=== PATIENT | male | born 1965 | race Caucasian/White ===

== ENCOUNTER 2018-05-07 09:31 | Emergency (ER) | payer BC ==
[2018-05-07 10:06] LABS: BASO % 0.5 % (0-6); EOS % 1.9 % (0-6); GRAN % 62.2 % (47-80); HEMATOCRIT 45.3 % (42.0-52.0); HEMOGLOBIN 15.1 gm/dl (14.0-18.0); LYMPH % 26.9 % (16-45); MEAN CELL VOLUME 84.4 fl (81-97); MEAN CORPUSCULAR HEMOGLOBIN 28.1 pg (27-33); MEAN CORPUSCULAR HGB CONC 33.3 g/dl (32-36); MEAN PLATELET VOLUME 10.1 fl (7.4-10.4); MONO % 8.5 % (0-9); PLATELET COUNT 230 K/uL (130-400); RED BLOOD COUNT 5.37 M/uL (4.40-5.70); RED CELL DISTRIBUTION WIDTH 12.9 % (11.5-14.5); WHITE BLOOD COUNT W/O DIFF 6.3 K/uL (4.2-12.2)
--- NOTE | 2018-05-07 10:07 | Emergency Department Record ---
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 He was reported to be "catatonic" and did not remember recent events or issues. The school called his who then did bring him directly to the ER. Presently the patient is doing a little better but is confused as to recent issues at home and does not remember being at school this AM. He has had a similar issue about 3 years ago that was diagnosed as Transient Global Amnesia and did see a Neurologist for that. No specific cause was found for his issue then. The patient did have a cold recently but no other recent illnesses or injuries. MD Complaint: Confusion Onset/Timin -: Hour(s) Severity: Mild Consistency: Constant Associated Symptoms: Denies other symptoms - Larry Coma Scale Eye Response: (4) Open spontaneously Motor Response: (6) Obeys commands Verbal Response: (5) Oriented [place] Total: 15 - Symptoms of Stroke Onset of Symptoms Date: 05/07/18 Onset of Symptoms Time: 09:00 Symptoms of stroke: Onset of Confusion - Related Data Home Medications Medication Instructions Recorded Confirmed Last Taken No Home Med [NO HOME MEDS] 05/07/18 05/07/18 Unknown Allergies Allergy/AdvReac Type Severity Reaction Status Date / Time No Known Drug Allergies Allergy Verified 05/07/18 09:39 Travel Screening - Travel/Exposure Within Last 30 Days Have you traveled within the last 30 days?: No Review of Systems Constitutional: Denies: Chills, Fever Eyes: Denies: Eye discharge ENT: Reports: Congestion, Throat pain Respiratory: Denies: Cough, Dyspnea Cardiovascular: Denies: Arrhythmia Endocrine: Denies: Fatigue Gastrointestinal: Denies: Diarrhea, Vomiting Genitourinary: Denies: Dysuria Musculoskeletal: Denies: Arthralgia Skin: Denies: Bruising Neurological: Denies: Confusion, Headache Past Medical History - SOCIAL HISTORY Smoking Status: Never smoker Alcohol Use: None Drug Use: None - RESPIRATORY Hx Respiratory Disorders: No - CARDIOVASCULAR Hx Cardio Disorders: No - NEURO Hx Neuro Disorders: Yes Comment:: temporary memory loss 3 years ago - GI Hx GI Disorders: No - Hx Genitourinary Disorders: No - ENDOCRINE Hx Endocrine Disorders: No - MUSCULOSKELETAL Hx Musculoskeletal Disorders: No - PSYCH Hx Psych Problems: No - HEMATOLOGY/ONCOLOGY Hx Hematology/Oncology Disorders: No Family Medical History Any Significant Family History?: No Physical Exam - General General Appearance: Alert, Cooperative, No acute distress - Head Head exam: Atraumatic, Normocephalic, Normal inspection - Eye Eye exam: Normal appearance, PERRL, EOMI - ENT Throat exam: Tonsillar erythema. negative: Normal inspection, Tonsillomegaly, Tonsillar exudate - Neck Neck exam: Normal inspection, Full ROM. negative: Tenderness - Respiratory Respiratory exam: Normal lung sounds bilaterally. negative: Respiratory distress - Cardiovascular Cardiovascular Exam: Regular rate, Normal rhythm, Normal heart sounds - GI/Abdominal GI/Abdominal exam: Soft, Normal bowel sounds. negative: Tenderness - Extremities Extremities exam: Normal inspection, Full ROM, Normal capillary refill. negative: Tenderness - Neurological Neurological exam: Alert, CN II-XII intact, Normal gait, Other (Neg Drift and Rhomberg.). negative: Abnormal gait, Altered, Motor sensory deficit, Oriented X3 (The patient is oriented to name and place but not date. He is not clear on the year, present president of the [employer] and recent issues at home this weekend.) Course Vital Signs 05/07/18 09:33 Temperature 98.3 F Pulse Rate 85 Respiratory 20 Rate Blood Pressure 155/109 Pulse Ox 98 - Reevaluation(s) Reevaluation #1: The patient is doing better at this time. His memory is slowly improving and he is starting to remember the events at home over the last few days. He now remembers the date, day and year and also the present President [employer]. 05/07/18 10:39 Reevaluation #2: We have contacted the Stroke Specialists at [facility] and are waiting for a call back. 05/07/18 10:46 Reevaluation #3: The patient has been doing well since admission to the ED. I did discuss the case with Dr. Ortiz who is the Stroke Neurologist and he would like the patient admitted to the OBS unit for monitoring and an EEG and MRI. I then did discuss the case with Dr. Scott in the ED and he does accept the patient in an ER to ER transfer. 05/07/18 11:00 Reevaluation #4: The patient did have another episode of the "event" while in the ED. He developed a blank stare, got sweating, did some lip smacking and was unresponsive while his eyes were open. It lasted about a minute and and then resolved. The patient then did start speaking and again was very confused like before. I did relay the info to Dr. Scott and we did change his transfer to a STAT ambulance transfer. Dr. Scott agreed with me that we would not load the patient with anti-seizure meds prior to transfer. 05/07/18 11:28 Reevaluation #5: I did also discuss the recent issues with Dr. Ortiz (Stroke) and he is aware of the recent event in the ED and the STAT transfer to the [facility] ED. 05/07/18 11:36 Medical Decision Making - Data Complexity MDM Data: Labs Ordered and/or Reviewed, X-Ray Ordered and/or Reviewed, EKG Ordered and/or Reviewed - Lab Data Result diagrams: 05/07/18 09:55 05/07/18 09:55 - EKG Data -: EKG Interpreted by Me EKG: No Acute Changes (The EKG is neg for acute changes. There are nonspecific T changes in the lateral leads.) - Radiology Data Radiology results: Report reviewed (Head CT: Mild generalized atrophy, O/W neg.) Disposition Disposition: Transfer Clinical Impression: Transient global amnesia Disposition: Acute Care Hospital Transfer Transfer To: [facility] Reason For Transfer: Neurology Accepting Physician: Tyler Time Discussed w/Accepting Physician: 11:32 Condition: (2) Stable Forms: Patient Portal Access Time of Disposition: 11:32 Quality - Quality Measures Quality Measures: N/A - Blood Pressure Screening View Details: Yes Does Patient Have Any of the Following: No Blood Pressure Classification: Hypertensive Reading Systolic Measurement: 155 Diastolic Measurement: 109 Screening for High Blood Pressure: < First Hypertensive BP, F/U Documented > [ [id number]] First Hypertensive Follow-up Interventions: Referral to alternative/primary care provider.
[2018-05-07 10:16] LABS: BLOOD UREA NITROGEN 12 mg/dL (6-20); EST GLOMERULAR FILTRATION RATE > 60 mL/min
[2018-05-07 10:17] LABS: TOTAL PROTEIN 7.1 g/dL (6.6-8.7)
[2018-05-07 10:19] LABS: GLUCOSE,RANDOM 98 mg/dL (74-109)
[2018-05-07 10:21] LABS: ALT/SGPT 27 U/L (<41); PARTIAL THROMBOPLASTIN TIME 25.1 SECONDS (24.5-39.1); PROTHROMBIN TIME (PATIENT) 9.8 SECONDS (9.5-12.1)
[2018-05-07 10:22] LABS: ALB/GLOB RATIO 1.5 (1.1-1.8); ALBUMIN 4.3 g/dL (4.0-5.0); ALKALINE PHOSPHATASE 70 U/L (40-129); AST/SGOT 13 U/L (10.0-50.0)
[2018-05-07 10:28] LABS: AMPHETAMINE SCREEN URINE NOT DETECTED; BARBITURATE SCREEN URINE NOT DETECTED; BENZODIAZEPINE SCREEN URINE NOT DETECTED; COCAINE SCREEN URINE NOT DETECTED; METHADONE SCREEN URINE NOT DETECTED; METHAMPHETAMINE SCREEN NOT DETECTED; OPIATE SCREEN URINE NOT DETECTED; OXYCODONE SCREEN URINE NOT DETECTED; PHENCYCLIDINE SCREEN URINE NOT DETECTED; PROPOXYPHENE SCREEN URINE NOT DETECTED; THC SCREEN URINE NOT DETECTED; TRICYCLIC ANTIDEPRESSANT SCRN NOT DETECTED
[2018-05-07 10:32] LABS: THYROID STIMULATING HORMONE 3.73 uIU/mL (0.270-4.20)
[2018-05-07] MEDS ORDERED: ASPIRIN 325 MG TABLET PO ONE (11:01)
--- NOTE | 2018-05-08 08:45 | CT SCAN REPORT ---
EXAM: HEAD CT WITHOUT CONTRAST HISTORY: CONFUSION. TECHNIQUE: Axial CT scan of the head was performed without IV contrast. Comparison: None. FINDINGS: No definite acute intracranial hemorrhage identified. No focal mass effect or midline shift evident. Mild generalized atrophy is present. No definite acute infarct or intracranial mass lesion is seen. The visualized paranasal sinuses and mastoids appear clear. IMPRESSION: 1. MILD GENERALIZED ATROPHY. 2. NO DEFINITE ACUTE INTRACRANIAL HEMORRHAGE OR FOCAL MASS EFFECT EVIDENT. JOB NUMBER: [id number] MTDD
== END 2018-05-07 11:22 | disposition short-term general hospital (02) ==
LOC: ER 09:31
DX: G45.4 Transient global amnesia (principal); R41.0 Disorientation, unspecified
CPT/HCPCS: 70450; 80053; 80305; 84443; 85025; 85610; 85730; 93005; 93010; 99285

== ENCOUNTER 2019-04-22 10:30 | Day surgery (SDC) | payer BC ==
[2019-04-22] MEDS ORDERED: LIDOCAINE 2% MDV (20MG/ML) 20ML VIAL IV ONE (10:31)
[2019-04-22] MEDS ORDERED: PROPOFOL 10 MG/ML VIAL IV ONE (10:31)
--- NOTE | 2019-04-23 08:20 | Operative Note ---
OPERATION: COLONOSCOPY to the cecum with cold snare polypectomy. INDICATION: Colorectal cancer screening. This is the patient's initial colonoscopy. ANESTHESIA: Intravenous sedation was administered by the department of anesthesiology and included Diprivan titrated to effect. PROCEDURE: Following informed consent from this alert individual including a discussion of the risks and benefits of the procedure and an opportunity for the patient to ask questions, the patient was in the left lateral decubitus position. A digital rectal examination was performed. No abnormalities were noted. Following this, the Olympus [id number] video colonoscope was inserted into the rectum without resistance. The rectal mucosa had a normal appearance with normal folds and distensibility. The colonoscope was advanced up through the colon to the level of the cecum with some slight difficulty. The bowel was somewhat redundant and looping was noted. With abdominal pressure support supplied by the nursing staff, the cecum was reached. The colon preparation overall was good. From the base of the cecum, the colonoscope was then withdrawn. At the level of the splenic flexure, there was a sessile 7-8 mm polyp noted which was removed with cold snare polypectomy and suctioned through the colonoscope into a collection trap. No other changes were appreciated throughout the bowel. No other polyps were seen. Retroflexion in the rectum was endoscopically unremarkable. The endoscope was straightened and removed. The patient tolerated the procedure well and was returned to the recovery area in stable condition. IMPRESSION: A flat sessile 7-8 mm polyp noted at the level of the splenic flexure removed with cold snare polypectomy as described above. RECOMMENDATIONS: Further recommendations will be forthcoming pending results of pathology obtained today. Followup will be with Dr. Wili Mcclellan. As always, thank you for allowing me to participate in the care of your patient. RADHA
== END 2019-04-22 12:38 | disposition home or self-care (01) ==
LOC: HOP 10:30
PROVIDERS: ATTEND Internal Medicine Gastroenterology
DX: Z12.11 Encounter for screening for malignant neoplasm of colon (principal); D12.6 Benign neoplasm of colon, unspecified; I10 Essential (primary) hypertension; E78.00 Pure hypercholesterolemia, unspecified